=== PATIENT | female | born 1950 | race Two or more races ===

== ENCOUNTER → 2017-03-15 | Outpatient (CLI) | payer OTHER ==
--- NOTE | 2017-03-16 12:04 | HKNOTE ---
DATE OF SERVICE: 03/15/2017 CHIEF COMPLAINT: Left knee pain. HISTORY OF PRESENT ILLNESS: This is a 67-year-old female who had bilateral total knee arthroplastie s in 08/[address] Partha Campo in [facility]. She is complaining of occasional swelling in the left knee. She denies any instability. She denies any history of trauma. She denies any recent infect ions. She denies any groin or back pain. GAIT: Nonantalgic gait. LEFT KNEE EXAM: Healed incision. No erythema or drainage, 0 to 120 degrees range of motion, stable to varus/valgus stress, negative anterior drawer, negative posterior drawer. RIGHT KNEE EXAM: Healed incision. No erythema or drainage, 0 to 120 degrees range of motion, stabl e to varus/valgus stress, negative anterior drawer, negative posterior drawer. Motor strength 5/5 hamstrings, quadriceps, tibialis anterior, gastrocsoleus bilaterally. X-RAY LEFT KNEE: The prosthesis is in acceptable alignment. There is a cruciate retaining prosthes is. There are no fractures or dislocations. X-RAYS RIGHT KNEE: There is a cruciate retaining prosthesis in the right knee that is cemented in a cceptable alignment. There are no fractures or dislocations. IMPRESSION: A 67-year-old female status post bilateral total knee arthroplasties in 08/2016. PLAN: She was instructed to take ibuprofen as needed. There is no evidence of infection or malalig nment. She will follow up as needed in the future. Dictated By: NADEGE BALDERRAMA/ISAK Conf#: [id number] DID#: [id number]
== END | disposition home or self-care (01) ==
LOC: HKI 14:51
PROVIDERS: ATTEND Orthopaedic Surgery Adult Reconstructive Orthopaedic Surgery
DX: M25.562 Pain in left knee (principal); R22.42 Localized swelling, mass and lump, left lower limb; Z96.653 Presence of artificial knee joint, bilateral
CPT/HCPCS: G0463